=== PATIENT | female | born 1980 | race Caucasian/White ===

== ENCOUNTER 2016-11-23 22:29 | Inpatient (IN) | payer OTHER ==
[2016-11-24] MEDS ORDERED: IBUPROFEN 600 MG TAB PO PRN (00:12)
[2016-11-24] MEDS ORDERED: LIDOCAINE 1% 30 ML SDV SC PRN (00:12)
[2016-11-24] MEDS ORDERED: OLIVE OIL 118 ML BTL MISC PRN (00:12)
[2016-11-24] MEDS ORDERED: EPSOM SALT 454 GM TP PRN (00:12)
[2016-11-24] MEDS ORDERED: TERBUTALINE SULFATE 1 MG/ML VIAL IV PRN (00:12)
[2016-11-24] MEDS ORDERED: LR 1,000 ML IV PRN (00:12)
[2016-11-24 00:21] LABS: % IMMATURE GRANULYOCYTES 0.6 % (0.0-1.1); ABSOLUTE IMMATURE GRANULOCYTES 0.09 10^3/uL (0.00-0.10); ADD DIFF? NO; ADD MORPH? NO; ADD SCAN? NO; ATYPICAL LYMPHOCYTE FLAG 10 (0-99); FRAGMENT RBC FLAG 0 (0-99); HEMATOCRIT 39.8 % (38.0-47.0); HEMOGLOBIN 13.7 g/dL (12.6-16.3); LEFT SHIFT FLG 10 (0-99); LIPEMIA HEMOLYSIS FLAG 90 (0-99); MEAN CELL HEMOGLOBIN 30.9 pg (27.9-34.1); MEAN CELL HEMOGLOBIN CONCENTR. 34.4 g/dL (32.4-36.7); MEAN CELL VOLUME 89.8 fL (81.5-99.8); MEAN PLATELET VOLUME 12.3 fL (8.7-11.7); PLATELET CLUMPS FLAG 0 (0-99); PLATELET COUNT 142 10^3/uL (150-400); RED BLOOD CELL COUNT 4.43 10^6/uL (4.18-5.33); RED CELL DISTRIBUTION WIDTH 15.1 % (11.5-15.2)
[2016-11-24] MEDS ORDERED: LIDOCAINE 1% 30 ML SDV ONE (00:38)
[2016-11-24] MEDS ORDERED: TERBUTALINE SULFATE 1 MG/ML VIAL ONE (00:38)
[2016-11-24] MEDS ORDERED: OXYTOCIN 10 UNIT/ML VIAL ONE (00:38)
[2016-11-24] MEDS ORDERED: OLIVE OIL 118 ML BTL ONE (00:38)
[2016-11-24] MEDS ORDERED: AMMONIA AROMATIC 1 EACH AMP IH ONE (00:38)
[2016-11-24] MEDS ORDERED: MISOPROSTOL 200 MCG TAB ONE (00:38)
--- NOTE | 2016-11-24 01:11 | GHP ---
[f rep st] HISTORY AND PHYSICAL DATE OF ADMISSION: 11/23/2016 ADMITTING DIAGNOSES: 1. Intrauterine at 38 and 3/7 weeks. 2. Active labor. HISTORY OF PRESENT ILLNESS: Patient is a 36-year-old 2, para 1-0-0-1 at 38 and 3/7 weeks with estimated due date 12/05/16 by last menstrual period and confirmed by 1st trimester ultrasound at 9 weeks. Patient presents to Labor and Delivery with complaints of worsening contractions, now every 5 minutes, very painful. Denies any leakage of fluid or vaginal bleeding. Good movement noted. GBS culture is negative. Patient does have good care at [facility], and presented in her 1st trimester. is complicated by marginal cord insertion. Followup growth ultrasound at 32 weeks revealed normal growth. Patient did develop anemia of and is taking iron. Patient had both the flu and Tdap. GBS culture is negative. PAST OBSTETRIC HISTORY: In 2013, patient had a vaginal delivery, viable female , weighing 8 pounds 4 ounces at 40 weeks, uncomplicated. GYNECOLOGIC HISTORY: Menarche at age 14, cycles are every 32 days x5 days. Last menstrual period 02/28/16. Patient denies a history of abnormal Pap smears or any exposure to sexually transmitted diseases. PAST MEDICAL HISTORY: Unremarkable. PAST SURGICAL HISTORY: Unremarkable. MEDICATIONS: vitamins, DHA. ALLERGIES: No known drug allergies. SOCIAL HISTORY: Patient is . Lives with her and daughter. She works in a library as a cataloger. Denies any alcohol, tobacco, or illicit drug use. FAMILY HISTORY: Noncontributory. LABORATORIES: O positive, antibody negative. RPR nonreactive. Rubella immune. Hepatitis B surface antigen negative. HIV negative. Trio screen was negative in 2012. TSH 0.843. Pap smear, GC and chlamydia cultures all negative. AFP negative. Verifi negative. One-hour Glucola was normal. Hematocrit is 35. GBS culture is negative. PHYSICAL EXAMINATION: VITAL SIGNS: On admission, vital signs are stable. Afebrile. GENERAL: Patient is a well-nourished, well-developed female, in mild distress secondary to contractions. Alert and oriented x3. CARDIOVASCULAR : Regular rate and rhythm. LUNGS: Clear to auscultation. ABDOMEN: Gravid, soft, nontender, nondistended. EXTREMITIES: Normal to inspection without calf tenderness or edema. PELVIC: The patient was found to be 7 cm dilated, 90% effaced, 0 station, bulging membranes. heart tones are category 1 tracing with a baseline of 140 beats per minute , positive accels, no decels, moderate variability. She is ginger every 3- 4 minutes on the monitor. ASSESSMENT: Patient is a 36-year-old 2, para 1-0-0-1 at 38 and 3/7 weeks, who presents in active labor. PLAN: 1. Admit to Labor and Delivery for expectant management. 2. GBS culture is negative. No prophylactic antibiotics needed. 3. Patient desires to go as natural as possible. 4. Anticipate spontaneous vaginal delivery. /[id number]/MODL MTDD
--- NOTE | 2016-11-24 01:15 | OBPROG ---
OBG Progress Note Assessment/Plan: Assessment: 36 y/o @ 38 3/7 wks in active labor Plan: Continue expectant management AROM - mod amount of clear fluid FHTs - Cat I tracing Anticipate 11/24/16 01:12 Subjective: Pt is breathing through ctx's. Objective: 11/24/16 00:07 Patient ABO/Rh O POSITIVE 11/24/16 00:07 - SVE Dilation (cm): 9 Effacement (%): 100 Station: +1 Current Contraction Pattern: Regular FHR (bpm): 140 FHR Pattern Variability: Moderate FHR Category: 1 Membranes: AROM Amniotic Fluid Color: Clear ICD10 Worksheet Patient Problems: Problems Problem Status Onset Active labor at term Acute
[2016-11-24] MEDS ORDERED: HYDROCODONE/APAP 5/325 TAB PO PRN (02:29)
[2016-11-24] MEDS ORDERED: DOCUSATE SODIUM 100 MG CAP PO PRN (02:29)
[2016-11-24] MEDS ORDERED: SIMETHICONE 80 MG TAB CHEW PO PRN (02:29)
[2016-11-24] MEDS ORDERED: HYDROCORTISONE 0.5% CREAM TP PRN (02:29)
[2016-11-24] MEDS: OXYTOCIN/RINGERS LACTATE 1,000 ML IV PRN ×2 (02:30→04:22)
--- NOTE | 2016-11-24 02:33 | OBPROC ---
- Labor and Delivery Onset of Contractions Date: 11/23/16 Onset of Contractions Time: 21:00 Onset of Contractions Type: Spontaneous Rupture of Membranes Date: 11/25/16 Rupture of Membranes Time: 01:01 Rupture of Membranes Type: Spontaneous Amniotic Fluid Color: Clear Dilation Complete Time: 01:56 Delivery Type: Spontaneous Placenta Delivery Date: 11/24/16 Placenta Delivery Time: 02:20 Episiotomy/Laceration: 1st Degree Repair: Other (Specify) (None) EBL: 300cc Complications: None - Medications Labor Augmentation/Induction Meds Used: None - Sheldon Info A Delivery Date: 11/24/16 Delivery Time: 02:14 Sex of Infant: Male Score (1 Min): 8 Score (5 Min): 9
[2016-11-24] MEDS: IBUPROFEN 600 MG TAB PO PRN ×3 (03:49→16:50)
[2016-11-24] MEDS ORDERED: METHYLERGONOVINE MAL 0.2 MG/ML INJ IM ONE (04:30)
[2016-11-24] MEDS ORDERED: METHYLERGONOVINE MAL 0.2 MG/ML INJ ONE (04:30)
[2016-11-24] MEDS ORDERED: MISOPROSTOL 200 MCG TAB PR ONE (04:30)
--- NOTE | 2016-11-24 06:41 | OBPROG ---
OBG Progress Note Assessment/Plan: Assessment: 1) s/p PPD #0 2) Acute PPH Plan: s/p Cytotec 1000mcg, Methergine and Pitocin Bimanual exam performed and no clots noted, minimal bleeding; FF fundus below umbilicus Straight cath for 300 cc clear urine Bedside u/s performed and no retained placenta noted on exam; endometrial stripe seen Will check H/H in 6 hrs Total EBL 1850cc Will cont to closely monitor 11/24/16 06:44 Subjective: Pt seen and examined. She feels better, much less cramping. Denies any dizziness at this time. Eating crackers. Objective: 11/24/16 00:07 Patient ABO/Rh O POSITIVE 11/24/16 00:07 Temp Pulse Resp BP Pulse Ox 36.5 C 78 18 113/60 11/24/16 03:54 11/24/16 03:54 11/24/16 03:54 11/24/16 03:54 Uterine Position/Fundal Height: Umbilicus -1 Uterine Tone: Firm - Physical Exam General Appearance: WD/WN, alert, no apparent distress Abdomen: non-tender, soft Genitourinary: lochia (moderate) Neuro/Psych: alert, normal mood/affect, oriented x 3 ICD10 Worksheet Patient Problems: Problems Problem Status Onset PPH ( hemorrhage) Acute (spontaneous vaginal delivery) Acute Active labor at term Acute
[2016-11-24 10:37] LABS: HEMOGLOBIN 10.7 g/dL (12.6-16.3)
--- NOTE | 2016-11-24 18:08 | OBPROG ---
OBG Progress Note Assessment/Plan: Assessment: Plan: Subjective: patient very uncomfortable. having signifcant back labor. pitocin is at 3 mu. sve 5-6/80/-2. patient tearful discussed pain managemnt options. despires epidural. anesthesia notified. Objective: 11/24/16 10:10 Patient ABO/Rh O POSITIVE 11/24/16 00:07 Temp Pulse Resp BP Pulse Ox 36.8 C 100 16 110/71 99 11/24/16 14:00 11/24/16 14:00 11/24/16 14:00 11/24/16 14:00 11/24/16 14:00 - SVE Dilation (cm): 5, 6 Effacement (%): 80 Station: -2 Current Contraction Pattern: Regular FHR Pattern Variability: Moderate FHR Category: 1 Membranes: AROM Amniotic Fluid Color: Clear ICD10 Worksheet Patient Problems: Problems Problem Status Onset Active labor at term Acute PPH ( hemorrhage) Acute (spontaneous vaginal delivery) Acute
[2016-11-25] MEDS: IBUPROFEN 600 MG TAB PO PRN (03:51)
[2016-11-25 06:44] LABS: HEMATOCRIT 26.3 % (38.0-47.0); HEMOGLOBIN 8.8 g/dL (12.6-16.3)
[2016-11-25 09:09] VITALS: BP 86/57; PULSE 63; RESP 16; TEMP 97.1; O2SAT 93
--- NOTE | 2016-11-25 12:36 | SOAPPROG ---
SOAP Progress Note Assessment/Plan: Assessment: ppd# 1/ s/p with pph anemia - asymptomtatic - on iron breast feeding Plan: iron discharge planning bleeding precautions 11/25/16 12:33 Subjective: patient is doing well. pain is well controlled. normal lochia. breast feeding is going well. denies headache and changes in vision. denies dizziness or lightheadedness. ambulating. voiding without difficulty. Objective: Vital Signs Temp Pulse Resp BP Pulse Ox 36.2 C 63 16 86/57 L 93 11/25/16 08:00 11/25/16 08:00 11/25/16 08:00 11/25/16 08:00 11/25/16 08:00 Laboratory Results 11/25/16 06:20 11/24/16 11/25/16 11/26/16 05:59 05:59 05:59 Output Total 300 2500 Balance -300 -2500 Physical Exam - Physical Exam General Appearance: WD/WN, alert, no apparent distress Respiratory: chest non-tender, lungs clear, normal breath sounds Cardiac/Chest: normal peripheral pulses, regular rate, rhythm Abdomen: normal bowel sounds, non-tender, soft, other (fundus firm and non tender) Skin: normal color, warm/dry Extremities: normal range of motion, non-tender, normal inspection, normal capillary refill Neuro/Psych: no motor/sensory deficits, alert, normal mood/affect, oriented x 3 ICD10 Worksheet Patient Problems: Problems Problem Status Onset Active labor at term Acute PPH ( hemorrhage) Acute (spontaneous vaginal delivery) Acute
[2016-11-25] MEDS ORDERED: IRON POLYSAC/IRON HEME 28 MG TAB PO SCH (12:45)
== END 2016-11-25 14:30 | disposition home or self-care (01) | DRG 775 ==
LOC: FLD 22:29 → FOB 11-24 13:52
PROVIDERS: ADMIT Obstetrics & Gynecology; ATTEND Obstetrics & Gynecology
PROC: 0HQ9XZZ Repair Perineum Skin, External Approach (ICD-10-PCS; principal; 2016-11-23)
PROC: 10E0XZZ Delivery of Products of Conception, External Approach (ICD-10-PCS; principal; 2016-11-23)
DX: O99.013 Anemia complicating pregnancy, third trimester (principal); Z37.0 Single live birth; Z3A.38 38 weeks gestation of pregnancy; D50.9 Iron deficiency anemia, unspecified; O70.0 First degree perineal laceration during delivery
CPT/HCPCS: J2210; J2590; J3105